=== PATIENT | female | born 1985 | race African-American/Black ===

== ENCOUNTER 2022-10-24 12:02 | Inpatient (IN) | payer MEDICAID ==
[~2022-10-24] VITALS: Ht 167.6 cm; Wt 106.7 kg
[2022-10-24] MEDS ORDERED: NALT50TA6 PO (12:45)
[2022-10-24] MEDS ORDERED: TIZA-211 PO (12:45)
[2022-10-24] MEDS ORDERED: MELO-381 PO (12:45)
[2022-10-24] MEDS ORDERED: PANT-31 PO (12:45)
[2022-10-24] MEDS ORDERED: FLUO20CA36 PO (13:29)
[2022-10-24] MEDS ORDERED: GABA-529 PO (13:29)
[2022-10-24 13:38] LABS: BASOPHILS % (AUTO) 0.8 % (0.0-2.0); EOSINOPHILS % (AUTO) 0 % (1.0-6.0); HEMATOCRIT 35.5 % (36-46); HEMOGLOBIN 11.9 g/dL (12.0-16.0); LYMPHOCYTES # (AUTO) 1.1 K/uL (1.0-4.8); LYMPHOCYTES % (AUTO) 19.3 % (22.0-44.0); MEAN CORPUSCULAR HEMOGLOBIN 29.8 pg (26.0-34.0); MEAN CORPUSCULAR HGB CONC 33.4 G/dL (31.0-37.0); MEAN CORPUSCULAR VOLUME 89 fL (80-100); MONOCYTES # (AUTO) 0.5 K/uL (0.1-1.0); MONOCYTES % (AUTO) 9.1 % (2.0-9.0); NEUTROPHILS # (AUTO) 3.9 K/uL (1.8-7.7); NEUTROPHILS % (AUTO) 70.8 % (40.0-70.0); PLATELET COUNT (AUTO) 290 K/uL (150-450); RED BLOOD CELL COUNT(AUTO) 3.98 MIL/uL (4.00-5.20)
[2022-10-24 13:53] LABS: ANION GAP 9 mmol/L (8-16); CALCIUM, TOTAL 9.5 mg/dL (8.8-10.5); CARBON DIOXIDE 28 mmol/L (22-29); CHLORIDE 102 mmol/L (98-107); CREATININE 0.89 mg/dL (0.60-1.30); GLOMERULAR FILTR. RATE CALC > 60 mL/min (>60); GLUCOSE,RANDOM 101 mg/dL (70-110); POTASSIUM 3.2 mmol/L (3.5-5.1); SODIUM SERUM 139 mmol/L (136-145); UREA NITROGEN, BLOOD 8 mg/dL (7-18)
[2022-10-24 13:58] LABS: ALANINE AMINOTRANSFERASE 29 U/L (12-78); ALBUMIN 4.4 g/dL (3.4-5.0); ALKALINE PHOSPHATASE 77 U/L (46-116); ASPARTATE AMINOTRANSFERASE 30 U/L (15-37); BILIRUBIN,TOTAL 0.6 mg/dL (0.1-1.0); TOTAL PROTEIN, SERUM 8.3 g/dL (6.4-8.2)
[2022-10-24] MEDS ORDERED: LORazepam 2 MG TABLET PO ONE (14:15)
[2022-10-24] MEDS ORDERED: POTASSIUM CHLORIDE 10% 40 MEQ/30 ML LIQUID UDCUP PO ONE (14:15)
[2022-10-24] MEDS ORDERED: DiphenhydrAMINE HCL 25 MG CAPSULE PO ONE (14:15)
[2022-10-24] MEDS ORDERED: HALOPERIDOL 5 MG TABLET PO ONE (14:15)
[2022-10-24 16:01] LABS: COVID AG,FIA SOURCE NASOPHARYNGEAL
[2022-10-24 22:12] VITALS: BP 141/80
[2022-10-24 22:33] VITALS: BP 141/80
[2022-10-25 08:14] VITALS: BP 156/78
[2022-10-25] MEDS: PANTOPRAZOLE SODIUM 40 MG DR TABLET PO SCH (08:25)
[2022-10-25] MEDS: TiZANidine HCL 4 MG TABLET PO SCH ×3 (08:25→17:08)
[2022-10-25] MEDS ORDERED: [UNRECOGNIZED DRUG - CODE] TP (11:29)
[2022-10-25] MEDS ORDERED: NIZO2SH TP (11:29)
[2022-10-25] MEDS: ONDANSETRON HCL 4 MG TABLET PO PRN ×2 (11:53→17:44)
[2022-10-25] MEDS ORDERED: GuaiFENesin/D-METHORPHAN [SUGAR-FREE] 200-20MG/10 ML SYRUP UDCUP PO PRN (12:00)
[2022-10-25] MEDS ORDERED: CloNIDine HCL 0.1 MG TABLET PO PRN (12:00)
[2022-10-25] MEDS ORDERED: DOCUSATE SODIUM 100 MG CAPSULE PO PRN (12:00)
[2022-10-25] MEDS ORDERED: LOPERAMIDE HCL 2 MG CAPSULE PO PRN (12:00)
[2022-10-25] MEDS ORDERED: MAGNESIUM HYDROXIDE SUSPENSION 30 ML UDCUP PO PRN (12:00)
[2022-10-25] MEDS ORDERED: MAG HYDROX/AL HYDROX/SIMETH ES 30 ML SUSPENSION UDCUP PO PRN (12:00)
[2022-10-25] MEDS ORDERED: PETROLATUM,WHITE 28 GM JELLY TP PRN (12:00)
[2022-10-25] MEDS ORDERED: NICOTINE 14 MG/24 HOUR PATCH TD PRN (12:00)
[2022-10-25] MEDS ORDERED: ACETAMINOPHEN 325 MG TABLET PO PRN (12:00)
[2022-10-25] MEDS ORDERED: ALBUTEROL SULFATE HFA 90 MCG/PUFF 8 GM INHALER IH PRN (12:00)
[2022-10-25] MEDS: GABAPENTIN 100 MG CAPSULE PO SCH ×3 (12:18→20:08)
[2022-10-25] MEDS: FLUoxetine HCL 20 MG CAPSULE PO SCH (12:18)
[2022-10-25 17:19] VITALS: BP 129/95
[2022-10-25] MEDS: MELOXICAM 7.5 MG TABLET PO SCH (20:08)
[2022-10-25] MEDS: ZOLPIDEM TARTRATE 10 MG TABLET PO PRN (22:57)
[2022-10-26] MEDS: LORazepam 2 MG TABLET PO PRN ×2 (03:30→20:07)
[2022-10-26] MEDS: ONDANSETRON HCL 4 MG TABLET PO PRN (03:30)
[2022-10-26 07:28] LABS: BASOPHILS % (AUTO) 0.8 % (0.0-2.0); EOSINOPHILS % (AUTO) 1.4 % (1.0-6.0); HEMATOCRIT 34.6 % (36-46); HEMOGLOBIN 11.5 g/dL (12.0-16.0); LYMPHOCYTES # (AUTO) 1.9 K/uL (1.0-4.8); LYMPHOCYTES % (AUTO) 28.9 % (22.0-44.0); MEAN CORPUSCULAR HEMOGLOBIN 29.5 pg (26.0-34.0); MEAN CORPUSCULAR HGB CONC 33.2 G/dL (31.0-37.0); MEAN CORPUSCULAR VOLUME 89 fL (80-100); MONOCYTES # (AUTO) 0.6 K/uL (0.1-1.0); MONOCYTES % (AUTO) 9.4 % (2.0-9.0); NEUTROPHILS # (AUTO) 3.8 K/uL (1.8-7.7); NEUTROPHILS % (AUTO) 59.5 % (40.0-70.0); PLATELET COUNT (AUTO) 278 K/uL (150-450); RED BLOOD CELL COUNT(AUTO) 3.89 MIL/uL (4.00-5.20); RED CELL DISTRIBUTION WIDTH 13.1 % (11.5-14.5)
[2022-10-26 07:38] LABS: ALANINE AMINOTRANSFERASE 23 U/L (12-78); ALBUMIN 3.6 g/dL (3.4-5.0); ALKALINE PHOSPHATASE 74 U/L (46-116); ANION GAP 9 mmol/L (8-16); ASPARTATE AMINOTRANSFERASE 27 U/L (15-37); BILIRUBIN,TOTAL 0.4 mg/dL (0.1-1.0); CARBON DIOXIDE 26 mmol/L (22-29); CHLORIDE 101 mmol/L (98-107); CREATININE 0.85 mg/dL (0.60-1.30); GLOMERULAR FILTR. RATE CALC > 60 mL/min (>60); GLUCOSE,RANDOM 94 mg/dL (70-110); SODIUM SERUM 136 mmol/L (136-145); THYROID STIMULATING HORMONE 3.75 uIU/mL (0.36-3.74); UREA NITROGEN, BLOOD 12 mg/dL (7-18)
[2022-10-26 07:40] LABS: HEMOGLOBIN A1C 5.1 % (3.8-5.6)
[2022-10-26] MEDS: GABAPENTIN 100 MG CAPSULE PO SCH ×3 (07:45→20:11)
[2022-10-26] MEDS: TiZANidine HCL 4 MG TABLET PO SCH ×3 (07:45→17:12)
[2022-10-26] MEDS: FLUoxetine HCL 20 MG CAPSULE PO SCH (07:45)
[2022-10-26] MEDS: PANTOPRAZOLE SODIUM 40 MG DR TABLET PO SCH (07:45)
[2022-10-26 07:55] LABS: CHOL/HDL RATIO 2.9 (3.9-5.7); CHOLESTEROL 165 mg/dL (131-200); HDL CHOLESTEROL 57 mg/dL (40-60); LDL CHOL (CALC.) 90 mg/dL (0-130); TRIGLYCERIDES 90 mg/dL (15-150)
[2022-10-26 08:09] VITALS: BP 133/95
[2022-10-26] MEDS ORDERED: METOCLOPRAMIDE HCL 5 MG TABLET PO SCH ×2 (09:00→17:00)
[2022-10-26] MEDS: METOCLOPRAMIDE HCL 5 MG TABLET PO SCH ×2 (12:08→17:13)
[2022-10-26 17:04] VITALS: BP 104/68
[2022-10-26 20:01] VITALS: BP 141/85
[2022-10-26] MEDS: MELOXICAM 7.5 MG TABLET PO SCH (20:10)
[2022-10-26] MEDS: ZOLPIDEM TARTRATE 10 MG TABLET PO PRN (21:21)
[2022-10-27] MEDS: METOCLOPRAMIDE HCL 5 MG TABLET PO SCH ×3 (06:13→17:33)
[2022-10-27] MEDS: GABAPENTIN 100 MG CAPSULE PO SCH ×3 (07:41→21:09)
[2022-10-27] MEDS: FLUoxetine HCL 20 MG CAPSULE PO SCH (07:41)
[2022-10-27] MEDS: PANTOPRAZOLE SODIUM 40 MG DR TABLET PO SCH (07:41)
[2022-10-27] MEDS: TiZANidine HCL 4 MG TABLET PO SCH ×4 (07:42→17:35)
[2022-10-27 08:11] VITALS: BP 152/85
[2022-10-27] MEDS: FERROUS SULFATE 325 MG EC TABLET PO SCH ×2 (12:00→17:30)
[2022-10-27 16:38] VITALS: BP 126/56
[2022-10-27] MEDS: BISACODYL 10 MG RECTAL RECTAL SUPPOSITORY PR PRN (16:39)
[2022-10-27] MEDS: LORazepam 2 MG TABLET PO PRN (19:30)
[2022-10-27 20:14] VITALS: BP 104/76
[2022-10-27] MEDS: MELOXICAM 7.5 MG TABLET PO SCH (21:09)
[2022-10-27] MEDS: ZOLPIDEM TARTRATE 10 MG TABLET PO PRN (21:11)
[2022-10-28] MEDS: FERROUS SULFATE 325 MG EC TABLET PO SCH ×3 (06:38→17:30)
[2022-10-28] MEDS: METOCLOPRAMIDE HCL 5 MG TABLET PO SCH ×3 (06:38→16:53)
[2022-10-28] MEDS: FLUoxetine HCL 20 MG CAPSULE PO SCH (08:10)
[2022-10-28] MEDS: PANTOPRAZOLE SODIUM 40 MG DR TABLET PO SCH (08:10)
[2022-10-28] MEDS: GABAPENTIN 100 MG CAPSULE PO SCH ×3 (08:10→20:59)
[2022-10-28] MEDS: TiZANidine HCL 4 MG TABLET PO SCH ×3 (08:11→16:53)
[2022-10-28 08:19] VITALS: BP 123/74
[2022-10-28] MEDS: IBUPROFEN 400 MG TABLET PO PRN (08:19)
[2022-10-28 08:23] VITALS: BP 123/74
[2022-10-28] MEDS ORDERED: KETOCONAZOLE 2% 120 ML SHAMPOO TP PRN (12:00)
[2022-10-28] MEDS: LORazepam 2 MG TABLET PO PRN ×2 (13:27→20:59)
[2022-10-28 13:53] LABS: COVID AG,FIA SOURCE NASAL SWAB
[2022-10-28] MEDS: ONDANSETRON HCL 4 MG TABLET PO PRN (17:46)
[2022-10-28 20:16] VITALS: BP 126/72
[2022-10-28] MEDS: MELOXICAM 7.5 MG TABLET PO SCH (20:58)
[2022-10-29] MEDS: LINACLOTIDE 72 MCG CAPSULE PO SCH (06:08)
[2022-10-29] MEDS: METOCLOPRAMIDE HCL 5 MG TABLET PO SCH ×3 (06:08→16:55)
[2022-10-29] MEDS: FERROUS SULFATE 325 MG EC TABLET PO SCH ×3 (06:30→17:30)
[2022-10-29] MEDS: FLUoxetine HCL 20 MG CAPSULE PO SCH (08:20)
[2022-10-29] MEDS: GABAPENTIN 100 MG CAPSULE PO SCH ×3 (08:20→20:12)
[2022-10-29] MEDS: TiZANidine HCL 4 MG TABLET PO SCH ×3 (08:21→16:55)
[2022-10-29 08:22] VITALS: BP 136/78
[2022-10-29] MEDS: PANTOPRAZOLE SODIUM 40 MG DR TABLET PO SCH (08:22)
[2022-10-29] MEDS: ONDANSETRON HCL 4 MG TABLET PO PRN (08:35)
[2022-10-29] MEDS ORDERED: MELOXICAM 7.5 MG TABLET PO SCH (09:00)
[2022-10-29] MEDS: IBUPROFEN 400 MG TABLET PO PRN (11:22)
[2022-10-29] MEDS: LORazepam 2 MG TABLET PO PRN ×2 (13:14→20:07)
[2022-10-29] MEDS ORDERED: IBUPROFEN 400 MG TABLET PO PRN (13:15)
[2022-10-29 17:20] VITALS: BP 134/76
[2022-10-29] MEDS: IBUPROFEN 800 MG TABLET PO PRN (17:20)
[2022-10-29] MEDS: MELOXICAM 7.5 MG TABLET PO SCH (21:15)
[2022-10-29] MEDS: ZOLPIDEM TARTRATE 10 MG TABLET PO PRN (22:00)
[2022-10-30 04:47] VITALS: BP 130/75
[2022-10-30] MEDS: LORazepam 2 MG TABLET PO PRN ×3 (04:47→21:12)
[2022-10-30] MEDS: IBUPROFEN 800 MG TABLET PO PRN (04:47)
[2022-10-30] MEDS: METOCLOPRAMIDE HCL 5 MG TABLET PO SCH ×3 (06:36→16:50)
[2022-10-30] MEDS: LINACLOTIDE 72 MCG CAPSULE PO SCH (06:36)
[2022-10-30] MEDS: FERROUS SULFATE 325 MG EC TABLET PO SCH ×3 (06:40→17:30)
[2022-10-30] MEDS: FLUoxetine HCL 20 MG CAPSULE PO SCH (08:11)
[2022-10-30] MEDS: GABAPENTIN 100 MG CAPSULE PO SCH ×3 (08:11→20:37)
[2022-10-30] MEDS: MELOXICAM 7.5 MG TABLET PO SCH ×2 (08:12→20:37)
[2022-10-30] MEDS: TiZANidine HCL 4 MG TABLET PO SCH ×3 (08:12→16:50)
[2022-10-30] MEDS: PANTOPRAZOLE SODIUM 40 MG DR TABLET PO SCH (08:13)
[2022-10-30] MEDS: ONDANSETRON HCL 4 MG TABLET PO PRN (08:13)
[2022-10-30 08:19] VITALS: BP 153/78
[2022-10-30] MEDS: HALOPERIDOL 5 MG TABLET PO PRN ×3 (09:08→21:12)
[2022-10-30] MEDS: ZOLPIDEM TARTRATE 10 MG TABLET PO PRN (20:37)
[2022-10-30] MEDS: BISACODYL 10 MG RECTAL RECTAL SUPPOSITORY PR PRN (21:13)
[2022-10-31] MEDS: METOCLOPRAMIDE HCL 5 MG TABLET PO SCH ×3 (06:24→17:48)
[2022-10-31] MEDS: LINACLOTIDE 72 MCG CAPSULE PO SCH (06:24)
[2022-10-31] MEDS: FERROUS SULFATE 325 MG EC TABLET PO SCH ×3 (06:31→17:30)
[2022-10-31] MEDS: TiZANidine HCL 4 MG TABLET PO SCH ×3 (10:41→17:48)
[2022-10-31] MEDS: FLUoxetine HCL 20 MG CAPSULE PO SCH (10:42)
[2022-10-31] MEDS: MELOXICAM 7.5 MG TABLET PO SCH ×2 (10:43→20:52)
[2022-10-31] MEDS: GABAPENTIN 100 MG CAPSULE PO SCH ×3 (10:43→20:53)
[2022-10-31] MEDS: HALOPERIDOL 5 MG TABLET PO PRN (10:43)
[2022-10-31] MEDS: PANTOPRAZOLE SODIUM 40 MG DR TABLET PO SCH (10:43)
[2022-10-31 13:11] VITALS: BP 102/62
[2022-10-31] MEDS: IBUPROFEN 800 MG TABLET PO PRN (13:11)
[2022-10-31 14:11] VITALS: BP 108/66
[2022-10-31 16:17] VITALS: BP 102/62
[2022-10-31] MEDS: ZOLPIDEM TARTRATE 10 MG TABLET PO PRN (20:53)
[2022-10-31] MEDS: LORazepam 2 MG TABLET PO PRN (21:32)
[2022-11-01] MEDS: LORazepam 2 MG TABLET PO PRN (04:23)
[2022-11-01] MEDS: FERROUS SULFATE 325 MG EC TABLET PO SCH ×2 (06:57→12:00)
[2022-11-01] MEDS: LINACLOTIDE 72 MCG CAPSULE PO SCH (06:57)
[2022-11-01] MEDS: METOCLOPRAMIDE HCL 5 MG TABLET PO SCH ×2 (06:57→11:35)
[2022-11-01] MEDS: PANTOPRAZOLE SODIUM 40 MG DR TABLET PO SCH (09:26)
[2022-11-01] MEDS: GABAPENTIN 100 MG CAPSULE PO SCH (09:26)
[2022-11-01] MEDS: FLUoxetine HCL 20 MG CAPSULE PO SCH (09:26)
[2022-11-01] MEDS: MELOXICAM 7.5 MG TABLET PO SCH (09:26)
[2022-11-01] MEDS: TiZANidine HCL 4 MG TABLET PO SCH ×2 (09:26→13:00)
[2022-11-01 10:20] VITALS: BP 123/72
[2022-11-01] MEDS ORDERED: FLUO20CA36 PO (10:34)
[2022-11-01] MEDS ORDERED: GABA-1216 PO (10:34)
[2022-11-01] MEDS ORDERED: TIZA-211 PO (10:34)
[2022-11-01] MEDS ORDERED: LINA72CA PO (10:34)
[2022-11-01] MEDS ORDERED: MELO-106 PO (10:34)
[2022-11-01] MEDS ORDERED: FERR325T27 PO (10:34)
[2022-11-01] MEDS ORDERED: METO5TAB2 PO (10:34)
[2022-11-01] MEDS ORDERED: PANT-31 PO (10:34)
== END 2022-11-01 17:43 | disposition home or self-care (01) | DRG 750 ==
LOC: EMS 12:02 → 3EC 18:04
PROVIDERS: ADMIT Psychiatry & Neurology Psychiatry; ATTEND Psychiatry & Neurology Psychiatry
PROC: GZHZZZZ Group Psychotherapy (ICD-10-PCS; principal; 2022-10-24)
DX: F25.0 Schizoaffective disorder, bipolar type (principal); R45.851 Suicidal ideations; Z91.199 Patient's noncompliance with other medical treatment and regimen due to unspecified reason; E87.6 Hypokalemia; Z20.822 Contact with and (suspected) exposure to COVID-19; F10.10 Alcohol abuse, uncomplicated; E03.9 Hypothyroidism, unspecified; D64.9 Anemia, unspecified; E66.9 Obesity, unspecified; K59.00 Constipation, unspecified; Y90.0 Blood alcohol level of less than 20 mg/100 ml; Z63.4 Disappearance and death of family member; Z79.899 Other long term (current) drug therapy; Z68.38 Body mass index [BMI] 38.0-38.9, adult; F19.10 Other psychoactive substance abuse, uncomplicated
CPT/HCPCS: 73521; 80053; 80061; 83036; 84132; 84443; 84703; 85025; 99291; G0480; Q0162; Q9967

== ENCOUNTER 2024-08-16 04:07 | Emergency (ER) | payer MEDICAID, OTHER ==
[~2024-08-16] VITALS: Ht 172.7 cm; Wt 119.3 kg
[~2024-08-16 04:07] MED LIST: BREX2TAB PO; FERR325T27 PO; GABA-1181 PO; HYDR25TA PO; LAMO-24 PO; MIRT-149 PO; OMEP20 PO; VENL-67 PO
[2024-08-16] MEDS ORDERED: FERR325T27 PO (04:45)
[2024-08-16] MEDS ORDERED: GABA-1201 PO (04:45)
[2024-08-16] MEDS ORDERED: AMLO-257 PO (04:45)
[2024-08-16] MEDS ORDERED: CELE200 PO (04:45)
[2024-08-16] MEDS ORDERED: PROP40TA7 PO (04:45)
[2024-08-16] MEDS ORDERED: HYDR50CA7 PO (04:45)
[2024-08-16] MEDS ORDERED: ONDA-104 PO (04:45)
[2024-08-16] MEDS ORDERED: HYDR25TA2 PO (04:45)
[2024-08-16] MEDS ORDERED: OXYC-38 PO (04:45)
[2024-08-16] MEDS ORDERED: METH18TA PO (04:45)
[2024-08-16] MEDS ORDERED: BACL10TA PO (04:45)
[2024-08-16] MEDS ORDERED: METH1TAB66 PO (04:45)
[2024-08-16] MEDS ORDERED: BREX3TAB PO (04:45)
[2024-08-16] MEDS ORDERED: MIRT-89 PO (04:45)
[2024-08-16 06:14] LABS: COVID AG,FIA SOURCE NASAL SWAB
[2024-08-16 06:16] LABS: BASOPHILS % (AUTO) 0.7 % (0.0-2.0); EOSINOPHILS % (AUTO) 0.6 % (1.0-6.0); HEMATOCRIT 40.9 % (36-46); HEMOGLOBIN 13.5 g/dL (12.0-16.0); LYMPHOCYTES # (AUTO) 2.7 K/uL (1.0-4.8); LYMPHOCYTES % (AUTO) 36.6 % (22.0-44.0); MEAN CORPUSCULAR HEMOGLOBIN 29.6 pg (26.0-34.0); MEAN CORPUSCULAR VOLUME 90 fL (80-100); MONOCYTES # (AUTO) 0.4 K/uL (0.1-1.0); MONOCYTES % (AUTO) 5.9 % (2.0-9.0); NEUTROPHILS # (AUTO) 4.1 K/uL (1.8-7.7); NEUTROPHILS % (AUTO) 56.2 % (40.0-70.0); PLATELET COUNT (AUTO) 323 K/uL (150-450); RED BLOOD CELL COUNT(AUTO) 4.57 MIL/uL (4.00-5.20); RED CELL DISTRIBUTION WIDTH 13.4 % (11.5-14.5); WHITE BLOOD COUNT (AUTO) 7.3 K/uL (4.5-11.0)
[2024-08-16 06:23] LABS: APPEARANCE,URINE CLEAR (CLEAR); BILIRUBIN,URINE NEGATIVE (NEGATIVE); COLOR,URINE LIGHT YELLOW (YELLOW); GLUCOSE, URINE (UA) NEGATIVE (NEGATIVE); KETONES,URINE NEGATIVE (NEGATIVE); LEUKOCYTE ESTERASE ,URINE NEGATIVE (NEGATIVE); NITRATE,URINE NEGATIVE (NEGATIVE); OCCULT BLOOD,URINE NEGATIVE (NEGATIVE); PROTEIN,URINE NEGATIVE (NEGATIVE); SPECIFIC GRAVITIY, URINE 1.013 (1.003-1.030); UROBILINOGEN,URINE <=1.0 mg/dL (<=1.0)
[2024-08-16 06:27] LABS: ANION GAP 6 mmol/L (8-16); CALCIUM, TOTAL 9.4 mg/dL (8.8-10.5); CARBON DIOXIDE 33 mmol/L (22-29); CHLORIDE 102 mmol/L (98-107); CREATININE 1.14 mg/dL (0.60-1.30); GLOMERULAR FILTR. RATE CALC > 60 mL/min (>60); GLUCOSE,RANDOM 100 mg/dL (70-110); POTASSIUM 3.9 mmol/L (3.5-5.1); SODIUM SERUM 141 mmol/L (136-145); UREA NITROGEN, BLOOD 12 mg/dL (7-18)
[2024-08-16 06:29] LABS: ALCOHOL, URINE DRUG SCREEN NEGATIVE (NEGATIVE); AMPHET/METH SCREEN,URINE NEGATIVE (NEGATIVE); BARBITURATE SCREEN, URINE NEGATIVE (NEGATIVE); BENZODIAZEPINES SCREEN,URINE NEGATIVE (NEGATIVE); CANNABINOID SCREEN,URINE NEGATIVE (NEGATIVE); COCAINE SCREEN,URINE NEGATIVE (NEGATIVE); METHADONE SCREEN, URINE NEGATIVE (NEGATIVE); OPIATE SCREEN,URINE NEGATIVE (NEGATIVE); PHENCYCLIDINE SCREEN,URINE NEGATIVE (NEGATIVE)
[2024-08-16 06:49] LABS: ALCOHOL, BLOOD (SERUM) < 3 mg/dL (0-10)
[2024-08-16 07:13] LABS: SARS-COV2 (COVID) ANTIGEN,FIA Negative (Negative)
[2024-08-16 14:25] VITALS: BP 146/83; PULSE 68; RESP 18; TEMP 97.5; O2SAT 97
[2024-08-16] MEDS ORDERED: INFLUENZA VIRUS VACCINE TVS (6MO+) 2024-25/PF 45 MCG/0.5 ML SYRINGE IM. ONE (15:15)
[2024-08-18] MEDS ORDERED: LAMO-24 PO (17:12)
== END 2024-08-16 14:06 | disposition admitted as inpatient to this hospital (09) ==
LOC: EMS 04:10 → CANBEDREQ 17:04
DX: F33.2 Major depressive disorder, recurrent severe without psychotic features (principal); I10 Essential (primary) hypertension; E03.9 Hypothyroidism, unspecified; F43.10 Post-traumatic stress disorder, unspecified; F90.9 Attention-deficit hyperactivity disorder, unspecified type; M79.7 Fibromyalgia; R44.0 Auditory hallucinations; Z79.899 Other long term (current) drug therapy; Z88.0 Allergy status to penicillin; Z88.1 Allergy status to other antibiotic agents; Z20.822 Contact with and (suspected) exposure to COVID-19
CPT/HCPCS: 99285; 87426; 80048; 81003; 84703; 85025; 36415; 80307; G0480

== ENCOUNTER 2024-11-05 20:31 | Inpatient (IN) | payer MEDICAID, OTHER ==
[~2024-11-05] VITALS: Ht 172.7 cm; Wt 118.2 kg
[~2024-11-05 20:31] MED LIST changes: +AMLO-257 PO; -BREX2TAB PO; +BREX3TAB PO; +CELE200 PO; -GABA-1181 PO; +GABA-1201 PO; -HYDR25TA PO; +HYDR25TA2 PO; +METH1TAB66 PO; -MIRT-149 PO; -OMEP20 PO; +PROP40TA7 PO; -VENL-67 PO
[2024-11-05 21:20] LABS: COVID AG,FIA SOURCE NASAL SWAB
[2024-11-05 21:38] LABS: SARS-COV2 (COVID) ANTIGEN,FIA Negative (Negative)
[2024-11-05] MEDS ORDERED: IPRATROPIUM BROMIDE 0.5 MG/2.5 ML NEB SOLUTION NEB PRN (22:30)
[2024-11-05] MEDS ORDERED: ONDANSETRON HCL 4 MG/2 ML VIAL IVP PRN (22:30)
[2024-11-05] MEDS ORDERED: ALBUTEROL SULFATE 2.5 MG/0.5 ML NEB SOLUTION NEB PRN (22:30)
[2024-11-05] MEDS ORDERED: ACETAMINOPHEN 325 MG TABLET PO PRN (22:30)
[2024-11-05] MEDS: BACLOFEN 10 MG TABLET PO ONE (22:38)
[2024-11-05] MEDS: GABAPENTIN 400 MG CAPSULE PO ONE (22:38)
[2024-11-05] MEDS: LORazepam 2 MG TABLET PO ONE (22:38)
[2024-11-05] MEDS: LamoTRIgine 100 MG TABLET PO ONE (22:38)
[2024-11-05] MEDS: BREXPIPRAZOLE 1 MG TABLET PO ONE (22:39)
[2024-11-06] MEDS: HEPARIN SODIUM,PORCINE 5,000 UNITS/ML VIAL SQ SCH
[2024-11-06 00:25] LABS: BASOPHILS % (AUTO) 0.3 % (0.0-2.0); EOSINOPHILS % (AUTO) 0.7 % (1.0-6.0); HEMATOCRIT 38.8 % (36-46); LYMPHOCYTES # (AUTO) 1.7 K/uL (1.0-4.8); MEAN CORPUSCULAR HEMOGLOBIN 30.1 pg (26.0-34.0); MEAN CORPUSCULAR HGB CONC 33.5 G/dL (31.0-37.0); MEAN CORPUSCULAR VOLUME 90 fL (80-100); MONOCYTES # (AUTO) 0.5 K/uL (0.1-1.0); MONOCYTES % (AUTO) 7.8 % (2.0-9.0); NEUTROPHILS # (AUTO) 4.7 K/uL (1.8-7.7); NEUTROPHILS % (AUTO) 67.2 % (40.0-70.0); PLATELET COUNT (AUTO) 234 K/uL (150-450); RED BLOOD CELL COUNT(AUTO) 4.32 MIL/uL (4.00-5.20)
[2024-11-06 00:34] LABS: ANION GAP 6 mmol/L (8-16); CALCIUM, TOTAL 9.1 mg/dL (8.8-10.5); CARBON DIOXIDE 30 mmol/L (22-29); CHLORIDE 105 mmol/L (98-107); CREATININE 0.87 mg/dL (0.60-1.30); GLOMERULAR FILTR. RATE CALC > 60 mL/min (>60); GLUCOSE,RANDOM 103 mg/dL (70-110); POTASSIUM 4.1 mmol/L (3.5-5.1); SODIUM SERUM 141 mmol/L (136-145); UREA NITROGEN, BLOOD 9 mg/dL (7-18)
[2024-11-06 00:40] LABS: ALCOHOL, BLOOD (SERUM) < 3 mg/dL (0-10)
[2024-11-06 01:05] LABS: APPEARANCE,URINE CLEAR (CLEAR); BILIRUBIN,URINE NEGATIVE (NEGATIVE); COLOR,URINE COLORLESS (YELLOW); GLUCOSE, URINE (UA) NEGATIVE (NEGATIVE); KETONES,URINE NEGATIVE (NEGATIVE); LEUKOCYTE ESTERASE ,URINE NEGATIVE (NEGATIVE); NITRATE,URINE NEGATIVE (NEGATIVE); OCCULT BLOOD,URINE NEGATIVE (NEGATIVE); PROTEIN,URINE NEGATIVE (NEGATIVE); SPECIFIC GRAVITIY, URINE 1.007 (1.003-1.030); UROBILINOGEN,URINE <=1.0 mg/dL (<=1.0)
[2024-11-06 01:11] LABS: ALCOHOL, URINE DRUG SCREEN NEGATIVE (NEGATIVE); AMPHET/METH SCREEN,URINE NEGATIVE (NEGATIVE); BARBITURATE SCREEN, URINE NEGATIVE (NEGATIVE); BENZODIAZEPINES SCREEN,URINE NEGATIVE (NEGATIVE); CANNABINOID SCREEN,URINE NEGATIVE (NEGATIVE); COCAINE SCREEN,URINE NEGATIVE (NEGATIVE); METHADONE SCREEN, URINE NEGATIVE (NEGATIVE); OPIATE SCREEN,URINE NEGATIVE (NEGATIVE); PHENCYCLIDINE SCREEN,URINE NEGATIVE (NEGATIVE)
[2024-11-06 06:32] LABS: ANION GAP 10 mmol/L (8-16); CARBON DIOXIDE 27 mmol/L (22-29); CHLORIDE 104 mmol/L (98-107); CREATININE 0.89 mg/dL (0.60-1.30); GLOMERULAR FILTR. RATE CALC > 60 mL/min (>60); GLUCOSE,RANDOM 98 mg/dL (70-110); POTASSIUM 4.3 mmol/L (3.5-5.1); SODIUM SERUM 141 mmol/L (136-145); UREA NITROGEN, BLOOD 10 mg/dL (7-18)
[2024-11-06] MEDS: DOCUSATE SODIUM 100 MG CAPSULE PO SCH (09:00)
[2024-11-06 10:33] VITALS: BP 108/59; PULSE 63; RESP 18; TEMP 98.2; O2SAT 100
[2024-11-06 15:23] VITALS: BP 113/64; PULSE 70; RESP 18; TEMP 98.6; O2SAT 100
[2024-11-06 16:15] LABS: COVID AG,FIA SOURCE NASAL SWAB
[2024-11-06 16:39] LABS: SARS-COV2 (COVID) ANTIGEN,FIA Negative (Negative)
[2024-11-06 19:15] VITALS: BP 107/59; PULSE 68; RESP 20; TEMP 98.8; O2SAT 97
[2024-11-07 05:17] VITALS: BP 97/58; PULSE 63; RESP 18; TEMP 98.4; O2SAT 96
[2024-11-07 07:30] VITALS: BP 132/70; PULSE 68; RESP 17; RESP 18; TEMP 97.8; O2SAT 99
[2024-11-07 11:52] VITALS: BP 109/46; PULSE 64; RESP 18; TEMP 98.8; O2SAT 96
[2024-11-07 15:53] VITALS: BP 105/59; PULSE 65; RESP 17; TEMP 97.9; O2SAT 94
[2024-11-07] MEDS ORDERED: HydrOXYzine PAMOATE 50 MG CAPSULE PO PRN (17:45)
[2024-11-07] MEDS ORDERED: LORazepam 1 MG TABLET PO PRN (17:45)
[2024-11-07] MEDS ORDERED: ZOLPIDEM TARTRATE 10 MG TABLET PO PRN (17:45)
[2024-11-07] MEDS ORDERED: LOPERAMIDE HCL 2 MG CAPSULE PO PRN (17:45)
[2024-11-07] MEDS ORDERED: GuaiFENesin/D-METHORPHAN [SUGAR-FREE] 200-20MG/10 ML SYRUP UDCUP PO PRN (17:45)
[2024-11-07] MEDS ORDERED: MAG HYDROX/ALUMINUM HYD/SIMETH ES 30 ML SUSPENSION UDCUP PO PRN (17:45)
[2024-11-07] MEDS ORDERED: ACETAMINOPHEN 325 MG TABLET PO PRN (17:45)
[2024-11-07] MEDS ORDERED: PROMETHAZINE HCL 25 MG TABLET PO PRN (17:45)
[2024-11-07] MEDS ORDERED: MAGNESIUM HYDROXIDE SUSPENSION 30 ML UDCUP PO PRN (17:45)
[2024-11-07] MEDS ORDERED: QUEtiapine FUMARATE 100 MG TABLET PO PRN (17:45)
[2024-11-07 19:25] VITALS: BP 101/64; PULSE 70; RESP 20; TEMP 99.3; O2SAT 96
[2024-11-07] MEDS: MELATONIN 5 MG TABLET PO SCH (21:06)
[2024-11-07] MEDS: THIAMINE 100 MG TABLET PO SCH (21:06)
[2024-11-07] MEDS: LamoTRIgine 100 MG TABLET PO SCH (21:08)
[2024-11-07] MEDS: BREXPIPRAZOLE 1 MG TABLET PO SCH (21:08)
[2024-11-08 05:34] VITALS: BP 106/54; PULSE 62; RESP 18; TEMP 98.1; O2SAT 95
[2024-11-08] MEDS ORDERED: METHYLPHENIDATE HCL 20 MG PO SCH (06:30)
[2024-11-08 07:14] VITALS: BP 110/62; PULSE 68; RESP 18; TEMP 98.4; O2SAT 96
[2024-11-08] MEDS: MULTIVITAMINS WITH MINERALS, THERAPEUTIC TABLET PO SCH (08:36)
[2024-11-08] MEDS: OMEGA-3/DHA/EPA/FISH OIL 1,000 MG CAPSULE PO SCH (08:36)
[2024-11-08] MEDS: FOLIC ACID 1 MG TABLET PO SCH (08:36)
[2024-11-08 11:04] LABS: COVID AG,FIA SOURCE NASAL SWAB
[2024-11-08 11:22] LABS: SARS-COV2 (COVID) ANTIGEN,FIA Negative (Negative)
== END 2024-11-08 16:10 | DRG 137 ==
LOC: EMS 20:31 → EDH 22:23 → 4E 11-06 09:30
PROVIDERS: ADMIT Internal Medicine; ATTEND Internal Medicine
DX: U07.1 COVID-19 (principal); R45.851 Suicidal ideations; F31.30 Bipolar disorder, current episode depressed, mild or moderate severity, unspecified; R00.1 Bradycardia, unspecified; E66.01 Morbid (severe) obesity due to excess calories; F90.9 Attention-deficit hyperactivity disorder, unspecified type; F43.10 Post-traumatic stress disorder, unspecified; Z68.39 Body mass index [BMI] 39.0-39.9, adult; Z88.1 Allergy status to other antibiotic agents; Z91.040 Latex allergy status; Z88.0 Allergy status to penicillin; Z88.8 Allergy status to other drugs, medicaments and biological substances; Z91.09 Other allergy status, other than to drugs and biological substances; Z79.899 Other long term (current) drug therapy
CPT/HCPCS: 71045; 80048; 80307; 81003; 83735; 84703; 85025; 87081; 99285; G0378; G0480; J1644; 36415-L1; 36415-TC

== ENCOUNTER 2024-11-08 10:12 | Inpatient (IN) | payer MEDICAID ==
[~2024-11-08] VITALS: Ht 175.3 cm; Wt 113.0 kg
[2024-11-08] MEDS ORDERED: PROMETHAZINE HCL 25 MG TABLET PO PRN (13:45)
[2024-11-08] MEDS ORDERED: MAGNESIUM HYDROXIDE SUSPENSION 30 ML UDCUP PO PRN (13:45)
[2024-11-08] MEDS ORDERED: GuaiFENesin/D-METHORPHAN [SUGAR-FREE] 200-20MG/10 ML SYRUP UDCUP PO PRN (13:45)
[2024-11-08] MEDS ORDERED: MAG HYDROX/ALUMINUM HYD/SIMETH ES 30 ML SUSPENSION UDCUP PO PRN (13:45)
[2024-11-08] MEDS ORDERED: LOPERAMIDE HCL 2 MG CAPSULE PO PRN (13:45)
[2024-11-08] MEDS ORDERED: ACETAMINOPHEN 325 MG TABLET PO PRN (13:45)
[2024-11-08] MEDS ORDERED: HydrOXYzine PAMOATE 50 MG CAPSULE PO PRN (13:45)
[2024-11-08] MEDS ORDERED: QUEtiapine FUMARATE 100 MG TABLET PO PRN (13:45)
[2024-11-08] MEDS ORDERED: TUBERCULIN, PURIFIED PROTEIN DERIVATIVE 5 TU/0.1 ML SYRINGE ID ONE (13:45)
[2024-11-08] MEDS ORDERED: ZOLPIDEM TARTRATE 10 MG TABLET PO PRN (13:45)
[2024-11-08 15:11] VITALS: BP 112/92; PULSE 82; RESP 18; TEMP 97.6; O2SAT 98
[2024-11-08] MEDS: THIAMINE 100 MG TABLET PO SCH (16:17)
[2024-11-08 20:06] VITALS: BP 113/69; PULSE 80; RESP 18; TEMP 97.6; O2SAT 97
[2024-11-08] MEDS: MELATONIN 5 MG TABLET PO SCH (20:23)
[2024-11-08] MEDS: LamoTRIgine 100 MG TABLET PO SCH (20:23)
[2024-11-08] MEDS: BREXPIPRAZOLE 1 MG TABLET PO SCH (20:24)
[2024-11-08] MEDS: GABAPENTIN 400 MG CAPSULE PO SCH (20:45)
[2024-11-08] MEDS: CELECOXIB 200 MG CAPSULE PO SCH (21:08)
[2024-11-09] MEDS: MULTIVITAMINS WITH MINERALS, THERAPEUTIC TABLET PO SCH (09:11)
[2024-11-09] MEDS: OMEGA-3/DHA/EPA/FISH OIL 1,000 MG CAPSULE PO SCH (09:11)
[2024-11-09] MEDS: FOLIC ACID 1 MG TABLET PO SCH (09:11)
[2024-11-09 09:18] LABS: HEMOGLOBIN A1C 5.4 % (3.8-5.6)
[2024-11-09 09:33] LABS: CHOL/HDL RATIO 3.2 (3.9-5.7); FREE T4 (FREE THYROXINE) 0.95 ng/dL (0.76-1.46); THYROID STIMULATING HORMONE 1.81 uIU/mL (0.36-3.74)
[2024-11-09 10:11] VITALS: BP 115/69; PULSE 81; RESP 18; TEMP 96.9; O2SAT 98
[2024-11-09 22:34] VITALS: RESP 18
[2024-11-10 08:25] VITALS: BP 137/80; PULSE 58; RESP 18; TEMP 96.9; O2SAT 97
[2024-11-10 21:21] VITALS: BP 105/66; PULSE 81; RESP 18; TEMP 97.2; O2SAT 96
[2024-11-11 10:40] VITALS: BP 131/79; PULSE 78; RESP 17; TEMP 96.8; O2SAT 99
[2024-11-11] MEDS: LORazepam 2 MG TABLET PO PRN (16:21)
[2024-11-11 21:15] VITALS: BP 106/61; PULSE 63; RESP 16; TEMP 97.3; O2SAT 98
[2024-11-12 09:16] VITALS: BP 124/75; PULSE 90; RESP 18; TEMP 97.1; O2SAT 95
[2024-11-12] MEDS ORDERED: GABA-1201 PO (18:40)
[2024-11-12] MEDS ORDERED: MELA5TAB40 PO (18:40)
[2024-11-12] MEDS ORDERED: LAMO-24 PO (18:40)
[2024-11-12] MEDS ORDERED: BREX1TAB PO (18:40)
[2024-11-12] MEDS ORDERED: OMEG100033 PO (18:40)
[2024-11-12 20:53] VITALS: BP 114/62; PULSE 89; RESP 18; TEMP 97.1; O2SAT 95
[2024-11-13 11:01] VITALS: BP 119/63; PULSE 77; RESP 18; TEMP 97.9; O2SAT 98
== END 2024-11-13 15:30 | disposition home or self-care (01) | DRG 753 ==
LOC: 3EC 13:46
PROVIDERS: ADMIT Psychiatry & Neurology Psychiatry; ATTEND Psychiatry & Neurology Psychiatry
PROC: GZHZZZZ Group Psychotherapy (ICD-10-PCS; principal; 2024-11-08)
PROC: GZ58ZZZ Individual Psychotherapy, Cognitive-Behavioral (ICD-10-PCS; 2024-11-08)
PROC: GZ56ZZZ Individual Psychotherapy, Supportive (ICD-10-PCS; 2024-11-08)
DX: F31.4 Bipolar disorder, current episode depressed, severe, without psychotic features (principal); R45.851 Suicidal ideations; F12.90 Cannabis use, unspecified, uncomplicated; F41.9 Anxiety disorder, unspecified; G89.29 Other chronic pain; I10 Essential (primary) hypertension; F43.10 Post-traumatic stress disorder, unspecified; G62.9 Polyneuropathy, unspecified; E66.01 Morbid (severe) obesity due to excess calories; Z60.8 Other problems related to social environment; Z88.0 Allergy status to penicillin; Z88.1 Allergy status to other antibiotic agents; Z88.8 Allergy status to other drugs, medicaments and biological substances; Z91.040 Latex allergy status; Z91.51 Personal history of suicidal behavior; Z79.899 Other long term (current) drug therapy; Z68.36 Body mass index [BMI] 36.0-36.9, adult
CPT/HCPCS: 80061; 83036; 84439; 84443